=== PATIENT | male | born 1985 | race Caucasian/White ===

== ENCOUNTER 2021-05-10 22:38 | Emergency (ER) | payer OTHER ==
--- NOTE | 2021-05-10 22:44 | NUR ---
BROUGHT IN BY [facility] FOUND DOWN- UNRESPONSIVE. INITIAL RHYTHM PEA/ V TACH , 4 ROUNDS OF EPI, 300 AMIODARONE, NARCAN GIVEN TOWER HELPER. INTUBATED. CPR IN PROGRESS
--- NOTE | 2021-05-10 22:50 | NUR ---
Helen Ca called @ [id number]
[2021-05-10] MEDS ORDERED: AMIODARONE 50 MG/ML, 3ML ONE (23:04)
[2021-05-10] MEDS ORDERED: VASOPRESSIN 20 UNIT/ML, 1ML ONE (23:04)
[2021-05-10] MEDS ORDERED: SODIUM BICARB 8.4%, 50ML SYRINGE ONE (23:04)
[2021-05-10] MEDS ORDERED: CALCIUM CHLORIDE 10%, 10ML SYR ONE (23:04)
[2021-05-10] MEDS ORDERED: EPINEPHRINE SYRINGE 0.1 MG/ML, 10ML ONE (23:04)
[2021-05-10] MEDS ORDERED: ATROPINE SYRINGE 0.1 MG/ML, 10ML ONE (23:04)
--- NOTE | 2021-05-10 23:07 | NUR ---
SEE CODE BLUE SHEETS FOR PROGRESSION OF CODE. PT ARRIVED IN FULL ARREST WITH CPR IN PROGRESS, INTUBATED. PT HAD IO NEEDLE TO LEFT LOWER LEG. 2ND IO PLACED TO RIGHT LOWER LEG. MEDICATION ADMINISTERED THRU IO. CODE SHEETS HAVE ENTIRE CODE.
[2021-05-10] MEDS ORDERED: CODE BLUE RESPONSE XX ONE (23:30)
--- NOTE | 2021-05-11 00:11 | NUR ---
PT PLACED IN BODY BAGS AND TAGGED APPROPRIATELY, AND PTS BELONGINGS TAGGED. PTS BELONGINGS BAG HAD AN OPEN POCKET ON THE SIDE, AND IN IT WAS VISIBLE A CRACK PIPE AND A BAGGIE OF CLEAR LOOKING ROCKS. SECURITY UPDATED AND CORE ANALYST UPDATED AND WAS TOLD TO JUST DISPOSE OF THOSE THINGS IN THE SHARPS CONTAINER. DISPOSED OF AND WITNESSED BY THE CORE ANALYST, PRAKASH ALANIZ RN.
--- NOTE | 2021-05-11 00:14 | NUR ---
WELL TESTING OPERATOR ARRIVED TO ROOM AT THIS TIME.
--- NOTE | 2021-05-11 00:30 | NUR ---
pts body released to medical cost consultant.
== END 2021-05-11 01:43 | disposition expired ==
LOC: EDBD 22:38 → MERGE 22:38 → ED 23:14
DX: I46.9 Cardiac arrest, cause unspecified (principal); I49.01 Ventricular fibrillation; I10 Essential (primary) hypertension
CPT/HCPCS: 31500; 36680; 92950; 99291; J0282; J0461